=== PATIENT | female | born 1985 | race Caucasian/White ===

== ENCOUNTER 2023-09-29 17:22 | Emergency (ER) | payer OTHER, SELFPAY ==
--- NOTE | 2023-09-29 17:25 | XRR_ITS ---
PROCEDURE INFORMATION: Exam: XR Left Hand Exam date and time: 09/29/2023 6:01 PM Age: 38 years old Clinical indication: Injury or trauma; Other: Jammed finger; Swelling (edema); Injury details: Patient states that she slammed her left thumb into a car door. She states that she has a laceration to her thumb. She was seen today by chin glass np in [facility] and was advised to come to er for further work-up TECHNIQUE: Imaging protocol: Radiologic exam of the left hand. Views: 3 or more views. COMPARISON: No relevant prior studies available. FINDINGS: Bones/joints: See Soft tissues finding. Soft tissues: Soft tissue defect along the distal aspect of the 1st digit with fracture through the tuft of the 1st digit. XR/XR hand LT min 3V* [id number] IMPRESSION: Soft tissue defect along the distal aspect of the 1st digit with fracture through the tuft of the 1st digit.
[2023-09-29 17:29] VITALS: BP 139/97; PULSE 87; RESP 18; TEMP 36.8; O2SAT 99; BMI 29.0
--- NOTE | 2023-09-29 17:49 | W.ED.EXTPRO ---
HPI - Extremity Problem General: Chief complaint: Extremity Injury, Upper Stated complaint: shut left thumb in car door Time Seen by Provider: 09/29/23 17:48 History of Present Illness: 38-year-old female comes in today with injury to the left thumb. Patient excellently cut her thumb in a car door this afternoon. Patient was first seen by her primary care and they referred her to the ER for further evaluation. Patient has noticeable midline defect to the nail of the thumb on the left hand. Normal range of motion is noted to the finger. Patient appears nontoxic. Review of Systems General: Reports: 10 or more systems reviewed and unremarkable except in HPI and below [facility] Female Reproductive History: Date of last menstrual period: 09/26/23 Physical Exam Const: COMMON NORMALS: alert HENMT: COMMON NORMALS: normocephalic HEAD & SCALP: normocephalic Neck/C-Spine: COMMON NORMALS: full ROM Resp: COMMON NORMALS: normal respiratory effort Cardio: COMMON NORMALS: regular rate RATE: regular rate GI: COMMON NORMALS: non-tender : COMMON NORMALS: Yes no CVA tenderness BLADDER/KIDNEY EXAM: Yes no CVA tenderness Back/Pelvis: COMMON NORMALS: no CVA tenderness Extremity: COMMON NORMALS: normal to inspection Neuro: SENSORIUM/ORIENTATION: Yes alert Skin: TRAUMA: laceration (Left thumb nail) Course Vital Signs: Vital signs: Vital Signs Temperature 98.2 F 09/29/23 17:29 Pulse Rate 87 09/29/23 17:29 Respiratory Rate 18 09/29/23 17:29 Blood Pressure 139/97 09/29/23 17:29 Pulse Oximetry 99 09/29/23 17:29 Oxygen Delivery Me thod Room Air 09/29/23 17:29 MDM - Extremity (Nontraumatic) Medical Decision Making 38-year-old female comes in today with injury to the left thumb. Patient has shocked her thumb in a car door. On exam patient has a laceration through the dorsal thumb through the nailbed. Patient has distal cap refill. Patient has distal sensation. Patient has good range of motion of thumb. Differential diagnosis includes foreign body, fracture, laceration. X-ray noted a distal tuft fracture. Patient was given 1 g of Rocephin IM for prophylaxis antibiotic. Wound was closed with 1 suture and skin adhesive to secure the nail. Patient be kept on oral antibiotics and recommend to follow-up with orthopedic hand for further evaluation and treatment. Patient reported understanding agreed to plan. Lab Data Radiology Impressions Hand X-Ray 09/29/23 17:25 IMPRESSION: Soft tissue defect along the distal aspect of the 1st digit with fracture through the tuft of the 1st digit. All radiology interpretation(s) finalized by discharge Discharge Plan Discharge Patient Disposition: Home Clinical Impression: Open fracture of tuft of distal phalanx of finger Crush injury to finger Qualifiers: Encounter type: initial encounter Qualified Code(s): S67.10XA - Crushing injury of unspecified finger(s), initial encounter Condition: Stable Prescriptions: New doxycycline hyclate 100 mg tablet 100 mg PO BID 10 Days Qty: 20 0RF Discharge Orders: Discharge ED (Routine); Ordered 09/29/23 Ordered By: Riki Shanks Referrals: Kortney Rich [Referring] - Patient Instructions: Finger Laceration (ED) Activity Restrictions/Additional Instructions: Keep wound clean and dry. Change dressing if it becomes wet or soiled. Contact orthopedic hand surgeon for follow-up appointment. Call office tomorrow to set up appointment next week. Dr. Rich's number has been offerd for you to set up an appointment. Take antibiotic as directed. Use acetaminophen ibuprofen for pain. Follow-up with primary care as needed. Return to ED for worsening symptoms such as severe pain, high fever greater than 100.4, or new concerns. Coding Level of Care Code ED Evidence Custodian for Jesus Hercules
[2023-09-29] MEDS: cefTRIAXone 1,000 MG in water for injection-sterile 2.1 ML 2.1 MG IM (18:54)
[2023-09-29 19:11] VITALS: BP 130/87; PULSE 80; O2SAT 97
== END 2023-09-29 19:13 | disposition home or self-care (01) ==
PROVIDERS: Emergency Provider Nurse Practitioner Family
DX: S62.522B Displaced fracture of distal phalanx of left thumb, initial encounter for open fracture (principal); S67.02XA Crushing injury of left thumb, initial encounter; W23.0XXA Caught, crushed, jammed, or pinched between moving objects, initial encounter
CPT/HCPCS: 12001; 73130; 96372; 99284; J0696